=== PATIENT | female | born 1935 | race Caucasian/White ===

== ENCOUNTER 2017-06-15 20:01 | Emergency (ER) | payer OTHER ==
[~2017-06-15 20:01] MED LIST: ASPI-516 CHEW; DIGO0.12 PO; LEVO50TA4 PO; PLAV75TA29 PO; ROSU5 PO
[2017-06-15 20:05] VITALS: BP 132/64; PULSE 82; RESP 18; TEMP 98.7; O2SAT 95
--- NOTE | 2017-06-15 20:38 | PD ---
HPI Chief Complaint: Eye Problems/Injury Time Seen by Provider: 20:35 Travel History International Travel<30 days: No Contact w/Intl Traveler<30days: No Traveled to known affect area: No History of Present Illness HPI 81-year-old female presents with inability to open left eye. Prior to arrival the patient accidentally put Super Glue in her left eye. She thought that she was using her prescribed eyedrops. She is now unable to open her left eye. Symptoms are moderate, aggravated by the use of Super Glue with no alleviating factors. She has no other complaints at this time. PFSH Past Medical History Heart Rhythm Problems: Yes Cardiac Catheterization: Yes Cardiovascular Problems: Yes High Cholesterol: Yes Cerebrovascular Accident: Yes Diminished Hearing: No Myocardial Infarction: Yes Thyroid Disease: Yes : 7 Para: 7 Tubal Ligation: Yes Past Surgical History Appendectomy: Yes Cardiac Surgery: Yes Coronary Artery Bypass Graft: Yes Coronary Stent: Yes Gynecologic Surgery: Yes Social History Alcohol Use: No Tobacco Use: No Substance Use: No Allergies-Medications (Allergen,Severity, Reaction): Coded Allergies: No Known Allergies (Unverified , 04/20/16) Reported Meds & Prescriptions Reported Meds & Active Scripts Active Erythromycin Opth Oint 5 Mg/Gm Oint 1 Applic LEFT EYE QID 10 Days Reported Crestor (Rosuvastatin Calcium) 5 Mg Tab 5 Mg PO DAILY Aspirin 81 Mg Chew 81 Mg CHEW DAILY Levothyroxine (Levothyroxine Sodium) 50 Mcg Tab 50 Mcg PO DAILY Digoxin 0.125 Mg Tab 0.125 Mg PO DAILY Plavix (Clopidogrel Bisulfate) 75 Mg Tab 75 Mg PO DAILY Review of Systems Eyes: Positive: Foreign Body Sensation, Pain, Other (inability to open left eye ) Physical Exam Narrative GENERAL: Well-developed well-nourished female in no acute distress SKIN: Warm and dry. HEAD: Atraumatic. Normocephalic. EYES: Right pupil is round and reactive to light. The patient is unable to open the left eye secondary to her eyelids being glued shut. ENT: No nasal bleeding or discharge. Mucous membranes pink and moist. NECK: Trachea midline. No JVD. Data Data Last Documented VS Vital Signs Date Time Temp Pulse Resp B/P (MAP) Pulse Ox O2 Delivery O2 Flow Rate FiO2 06/15/17 22:25 06/15/17 20:05 98.7 82 18 95 Orders Orders Erythromycin 0.5% Opth Oint (Ilotycin 0. (06/15/17 20:45) Proparacaine 0.5% Opth Soln (Alcaine 0.5 (06/15/17 20:45) Ed Discharge Order (06/15/17 22:13) [facility] Medical Decision Making Medical Screen Exam Complete: Yes Emergency Medical Condition: Yes Medical Record Reviewed: Yes Differential Diagnosis Super Glue foreign body versus corneal abrasion versus corneal ulceration Narrative Course 81-year-old female presents with inability to open her left eye secondary to accidentally using superglue instead of her regular ophthalmic solution. Per Everardo's, typical treatment would be erythromycin ophthalmic ointment application to loosen the glue and remove clots that are able to be removed. The patient ideally within follow-up with ophthalmology. Erythromycin proparacaine has been ordered and the patient is being signed out to the oncoming provider pending treatment. Scripts Erythromycin Opth Oint (Erythromycin Opth Oint) 5 Mg/Gm Oint 1 APPLIC LEFT EYE QID for Infection for 10 Days, #1 TUBE 0 Refills Prov: Ada Russell MD 06/15/17 Domingo Hanley Jun 15, 2017 20:38
[2017-06-15] MEDS ORDERED: ERYTHROMYCIN 0.5% OPTH OINT 3.5 GM TUBO LEFT EYE ONE (20:45)
[2017-06-15] MEDS ORDERED: PROPARACAINE HCL 0.5% OPHT SOLN 15 ML BTL LEFT EYE ONE (20:45)
--- NOTE | 2017-06-15 21:07 | PD ---
Physical Exam Date Seen by Provider: Jun 15, 2017 Time Seen by Provider: 21:07 Data Data Last Documented VS Vital Signs Date Time Temp Pulse Resp B/P (MAP) Pulse Ox O2 Delivery O2 Flow Rate FiO2 06/15/17 22:25 06/15/17 20:05 98.7 82 18 95 Orders Orders Erythromycin 0.5% Opth Oint (Ilotycin 0. (06/15/17 20:45) Proparacaine 0.5% Opth Soln (Alcaine 0.5 (06/15/17 20:45) Ed Discharge Order (06/15/17 22:13) [facility] Supervised Visit with MAG: No Narrative Course Patient was initially evaluated by Domingo Hanley PA-C. Please see his note for those details. Briefly this is a 81-year-old female who accidentally instilled Super Glue into her left eye. She states that she thought she was using prescription eyedrops. She is unable to open the eye. On my exam there is a large crust in the central aspect of the lids. The medial and lateral canthus are able to be opened slightly. Removal of the Super Glue was performed. Please see my procedure note for details. On reexam the patient has a large corneal abrasion at the 6 o'clock position. She is prescribed erythromycin ointment 4 times a day. She is instructed to follow-up with Dr. Grissom tomorrow morning. She is stable and discharged home. Procedures Procedure Narrative Removal of super glue left eye: A drop of proparacaine was instilled in the medial canthus. Adequate anesthesia was obtained. A thick layer of erythromycin ointment was applied along the lash line. Cotton swabs were used to gently remove the crust of super glue. Fluorescein exam reveals a 3 mm corneal abrasion in the 6 o'clock position. Patient endorses mildly blurred vision. Patient tolerated the procedure well. Diagnosis Primary Impression: Foreign body of left eyelid Additional Impression: Corneal abrasion, left Qualified Codes: S05.02XA - Injury of conjunctiva and corneal abrasion without foreign body, left eye, initial encounter Referrals: Janie Grissom MD Patient Instructions: Corneal Abrasion (ED), General Instructions Additional Instruction: Instill erythromycin ointment into the left eye 4 times per day. Warm compresses held over the eyelid may help to soften any remaining glue in the eyelashes. Nothing else in the eye. Call Dr. Grissom's office tomorrow for follow-up appointment. Return to the ED for worsening symptoms or any urgent or emergent medical condition. Med/Other Pt SpecificInfo: Prescription(s) given Scripts Erythromycin Opth Oint (Erythromycin Opth Oint) 5 Mg/Gm Oint 1 APPLIC LEFT EYE QID for Infection for 10 Days, #1 TUBE 0 Refills Prov: Ada Russell MD 06/15/17 Disposition: 01 DISCHARGE HOME Condition: Stable Rizwana Headley Jun 15, 2017 21:07
[2017-06-15] MEDS ORDERED: ERYTOIN10 LEFT EYE (22:12)
== END 2017-06-15 22:25 | disposition home or self-care (01) ==
LOC: NEPK 20:01
DX: T15.12XA Foreign body in conjunctival sac, left eye, initial encounter (principal); E78.00 Pure hypercholesterolemia, unspecified; I25.2 Old myocardial infarction; X58.XXXA Exposure to other specified factors, initial encounter; Z86.73 Personal history of transient ischemic attack (TIA), and cerebral infarction without residual deficits; Z95.1 Presence of aortocoronary bypass graft; Z95.5 Presence of coronary angioplasty implant and graft; Z79.899 Other long term (current) drug therapy; Z79.82 Long term (current) use of aspirin
CPT/HCPCS: 65220

== ENCOUNTER 2017-08-23 09:53 | Emergency (ER) | payer OTHER ==
[~2017-08-23] VITALS: Ht 162.6 cm; Wt 50.0 kg
[~2017-08-23 09:53] MED LIST changes: +ERYTOIN10 LEFT EYE
[2017-08-23 09:55] VITALS: BP 112/67; PULSE 90; RESP 16; TEMP 98; O2SAT 97
[2017-08-23] MEDS ORDERED: DEXAMETHASONE SOD PHOS 4 MG/ML VIAL IM ONE (11:15)
--- NOTE | 2017-08-23 11:37 | PD ---
HPI Chief Complaint: Injury Time Seen by Provider: 11:02 Travel History International Travel<30 days: No Contact w/Intl Traveler<30days: No Traveled to known affect area: No History of Present Illness HPI 82-year-old female presents to the emergency room for evaluation of severe right ankle pain and swelling for the past 4 days. Pain is localized to the right lateral malleolus. Patient states she has no pain at rest but extreme pain with any range of motion of the ankle. She has been taking over-the- counter aspirin without significant relief in symptoms. She denies any trauma or injury to the area. Denies history of gout or pseudogout. She denies any fever, chills, nausea, vomiting. No history of kidney problems. PFSH Past Medical History Heart Rhythm Problems: Yes Cardiac Catheterization: Yes Cardiovascular Problems: Yes High Cholesterol: Yes Cerebrovascular Accident: Yes Diminished Hearing: No Myocardial Infarction: Yes Thyroid Disease: Yes ?: Not : 7 Para: 7 Tubal Ligation: Yes Past Surgical History Appendectomy: Yes Cardiac Surgery: Yes Coronary Artery Bypass Graft: Yes Coronary Stent: Yes Gynecologic Surgery: Yes Social History Alcohol Use: No Tobacco Use: No Substance Use: No Allergies-Medications (Allergen,Severity, Reaction): Coded Allergies: No Known Allergies (Unverified , 04/20/16) Reported Meds & Prescriptions Reported Meds & Active Scripts Active Prednisone 20 Mg Tab 20 Mg PO DAILY 5 Days Reported Crestor (Rosuvastatin Calcium) 5 Mg Tab 5 Mg PO DAILY Aspirin 81 Mg Chew 81 Mg CHEW DAILY Levothyroxine (Levothyroxine Sodium) 50 Mcg Tab 50 Mcg PO DAILY Digoxin 0.125 Mg Tab 0.125 Mg PO DAILY Plavix (Clopidogrel Bisulfate) 75 Mg Tab 75 Mg PO DAILY Review of Systems Except as stated in HPI: all other systems reviewed are Neg Physical Exam Narrative GENERAL: Well-nourished, well-developed female no acute distress. Afebrile. SKIN: Focused skin assessment warm/dry. Mild erythema and ecchymosis and increased warmth of the right lateral malleolus and right dorsal foot. HEAD: Normocephalic. EYES: No scleral icterus. No injection or drainage. NECK: Supple, trachea midline. No JVD or lymphadenopathy. CARDIOVASCULAR: Regular rate and rhythm without murmurs, gallops, or rubs. RESPIRATORY: Breath sounds equal bilaterally. No accessory muscle use. MUSCULOSKELETAL: No cyanosis. 1+ pitting edema to the right lower extremity. No calf pain or swelling. Negative Homans sign. Extreme pain with any range of motion of the right ankle. 2+ dorsalis pedis pulse. Extreme tenderness to palpation of the right lateral malleolus. Data Data Last Documented VS Vital Signs Date Time Temp Pulse Resp B/P (MAP) Pulse Ox O2 Delivery O2 Flow Rate FiO2 08/23/17 09:55 98.0 90 16 112/67 (82) 97 Orders Orders Ankle, Complete ([id number]) (08/23/17 ) Foot, Limited (2vws) (08/23/17 ) Dexamethasone Inj (Decadron Inj) (08/23/17 11:15) Ed Discharge Order (08/23/17 12:08) [facility] Medical Decision Making Medical Screen Exam Complete: Yes Emergency Medical Condition: Yes Medical Record Reviewed: Yes Differential Diagnosis contusion, abrasion, fracture, strain, inflammatory arthritis Narrative Course 82-year-old female presents to the emergency room for evaluation of severe right ankle pain for the past 4 days. Patient denies trauma or injury. Physical exam reveals extreme tenderness to palpation of the right lateral malleolus. Pain is worsened with ambulation. Physical exam is reassuring. Patient has moderate edema of the right lateral malleolus with mild increased warmth and redness. Range of motion is only slightly limited because of pain. She has had no fevers. Low suspicion for septic arthritis. X-rays of the foot and ankle are negative. I suspect inflammatory arthritis. Patient was given Decadron in the emergency room. She will be discharged with prescription for prednisone. Told to follow-up with her primary care physician for outpatient aspiration if symptoms persist or return immediately for any worsening symptoms such as fever, chills, increased redness, increased pain. She understands and agrees to plan. Diagnosis Primary Impression: Right ankle pain Qualified Codes: M25.571 - Pain in right ankle and joints of right foot Referrals: Primary Care Physician Additional Instructions: Rest and drink plenty of fluids. Prednisone as directed, until gone. Start tomorrow. Apply ice to the affected area for 20 minutes at a time, as needed for pain and swelling. Follow-up with a primary care physician. Return to the emergency room for worsening symptoms. Med/Other Pt SpecificInfo: Prescription(s) given Scripts Prednisone (Prednisone) 20 Mg Tab 20 MG PO DAILY for 5 Days, #5 TAB 0 Refills Prov: Chidi Andrade MD 08/23/17 Disposition: 01 DISCHARGE HOME Condition: Stable Shanon Adams Aug 23, 2017 11:37
--- NOTE | 2017-08-23 11:41 | RADRPT ---
EXAM DATE/TIME: 08/23/2017 11:27 [facility] COMPARISON: No previous studies available for comparison. INDICATIONS : Right ankle pain. No known injury. MEDICAL HISTORY : None. SURGICAL HISTORY : Pacemaker. ENCOUNTER: Initial ACUITY: 1 day PAIN SCORE: 9/10 LOCATION: Right ankle, [place] FINDINGS: Two view examination of the right foot demonstrates no soft tissue swelling, dislocation, or fracture . The calcaneus is intact. Small calcaneal spur at the plantar aponeurosis. Bony mineralization is normal. CONCLUSION: 1. Calcaneal spur at the plantar aponeurosis. 2. No fracture. Domingo Hwang MD on August 23, 2017 at 11:37 Board Certified Radiologist. This report was verified electronically.
--- NOTE | 2017-08-23 11:44 | RADRPT ---
EXAM DATE/TIME: 08/23/2017 11:23 [facility] COMPARISON: No previous studies available for comparison. INDICATIONS : Right ankle pain. No known injury. MEDICAL HISTORY : None. SURGICAL HISTORY : Pacemaker. ENCOUNTER: Initial ACUITY: 2 days PAIN SCORE: 9/10 LOCATION: Right ankle, center FINDINGS: Three view exam was performed of the right ankle. The bony structures are in normal alignment. No e vidence of fracture, dislocation, or soft tissue swelling. Punctate calcification inferior to the me dial malleolus appears chronic. The ankle mortise is intact. No radiopaque foreign bodies are seen. Bony mineralization is normal. Calcaneal spur at the plantar aponeurosis. CONCLUSION: 1. No fracture or significant soft tissue swelling. 2. Punctate calcification inferior to medial malleolus appears chronic Domingo Hwang MD on August 23, 2017 at 11:39 Board Certified Radiologist. This report was verified electronically.
[2017-08-23] MEDS ORDERED: PRED20 PO (12:08)
== END 2017-08-23 12:39 | disposition home or self-care (01) ==
LOC: NEPK 09:53
DX: M25.571 Pain in right ankle and joints of right foot (principal); E78.00 Pure hypercholesterolemia, unspecified; I25.2 Old myocardial infarction; Z86.73 Personal history of transient ischemic attack (TIA), and cerebral infarction without residual deficits; Z95.1 Presence of aortocoronary bypass graft; Z95.5 Presence of coronary angioplasty implant and graft; Z95.0 Presence of cardiac pacemaker; Z79.82 Long term (current) use of aspirin; Z79.899 Other long term (current) drug therapy
CPT/HCPCS: 73610; 73620; 96372; 99283; J1100